=== PATIENT | male | born 1970 | race African-American/Black ===

== ENCOUNTER 2020-10-09 12:45 | Emergency (ER) | payer OTHER ==
[2020-10-09 13:02] VITALS: BP 147/99; PULSE 102; RESP 18; TEMP 98.4
[2020-10-09] MEDS ORDERED: AMOXIC-POT CLAV 875MG STARTER PACK 2 TAB BTL PO STA ×2 (13:53)
[2020-10-09] MEDS ORDERED: AMOXIC-POT CLAV 875-125MG 1 EACH TAB PO STA (13:53)
--- NOTE | 2020-10-09 13:57 | ED ---
Medical Clearance HPI - General Chief complaint: Medical Clearance Stated complaint: Long-Term clearance Time Seen by Provider: 10/09/20 13:04 Source: patient, RN notes reviewed Mode of arrival: ambulatory Limitations: no limitations - History of Present Illness Initial comments: 49-year-old male presents emergency Department with police for [facility] clearance. Patient had a dog bite to his right arm. Patient states that he had surgery at [facility]. Patient has follow-up appointment on 10/21/2020. They felt that there was some drainage and has not taken his antibiotics last couple days. Patient states is painful but not changing. Patient offers no complaints. Allergies/Adverse reactions: Allergies Allergy/AdvReac Type Severity Reaction Status Date / Time No Known Allergies Allergy Verified 10/09/20 12:57 Review of Systems ROS Statement: Those systems with pertinent positive or pertinent negative responses have been documented in the HPI. ROS Other: All systems not noted in ROS Statement are negative. Past Medical History Past Medical History: Seizure Disorder Additional Past Medical History / Comment(s): glaucoma, History of Any Multi-Drug Resistant Organisms: None Reported Additional Past Surgical History / Comment(s): R arm Past Psychological History: No Psychological Hx Reported Smoking Status: Current every day smoker Past Alcohol Use History: Daily, Heavy Past Drug Use History: None Reported General Exam Limitations: no limitations General appearance: alert, in no apparent distress Head exam: Present: atraumatic, normocephalic, normal inspection Respiratory exam: Present: normal lung sounds bilaterally. Absent: respiratory distress, wheezes, rales, rhonchi, stridor Cardiovascular Exam: Present: regular rate, normal rhythm, normal heart sounds. Absent: systolic murmur, diastolic murmur, rubs, gallop, clicks Extremities exam: Present: other (Right arm wrap was on on, there are multiple open wounds there is some cracking noted multiple sutures there is no significant evidence of cellulitis or infection) Course Vital Signs 10/09/20 12:57 Temperature 98.4 F Pulse Rate 102 H Respiratory 18 Rate Blood Pressure 147/99 O2 Sat by Pulse 100 Oximetry Medical Decision Making - Medical Decision Making Patient has extensive dog bite to right arm with surgical repair there is no major signs of infection. Patient will be discharged on antibiotics Disposition Clinical Impression: Medical clearance for incarceration, Dog bite of right arm Disposition: HOME SELF-CARE Condition: Stable Additional Instructions: Continue antibiotic as directed. Please return to the Emergency Department if symptoms worsen or any other concerns. Is patient prescribed a controlled substance at d/c from ED?: No Referrals: Nadira Reed MD [Primary Care Provider] - 1-2 days Time of Disposition: 13:56
== END 2020-10-09 13:55 | disposition home or self-care (01) ==
LOC: EC 12:45
DX: Z02.89 Encounter for other administrative examinations (principal); S41.151A Open bite of right upper arm, initial encounter; F17.200 Nicotine dependence, unspecified, uncomplicated; W54.0XXA Bitten by dog, initial encounter
CPT/HCPCS: 99283

== ENCOUNTER 2020-11-11 07:32 | Inpatient (IN) | payer OTHER ==
--- NOTE | 2020-11-11 07:58 | ED ---
General Adult HPI - General Chief complaint: Abdominal Pain Stated complaint: Abd pain Time Seen by Provider: 11/11/20 07:37 Source: patient, EMS Mode of arrival: EMS Limitations: no limitations - History of Present Illness Initial comments: Dictation was produced using [employer] dictation software. please excuse any grammatical, word or spelling errors. This patient was cared for during a federal and state declared state of emergency secondary to Covid 19 Chief Complaint: 50-year-old incarcerated male presents to emergency Department for surgical consultation History of Present Illness: 50-year-old male. History obtained from transfer documentation, patient and lung enforcement. Patient's currently incarcerated male past medical history of glaucoma. He was seen at [facility] for acute onset abdominal pain. He was evaluated where CT was performed by ER physician marv Bangura showing sigmoid diverticulitis. Patient states that he has severe pain. Patient was given Levaquin and IV analgesia. Patient states he's been having fevers. According to law enforcement Sveta did not have a surgeon commissioned sales associate. Patient states that his symptoms began acutely. He states that a normal bowel movement yesterday. The ROS documented in this emergency department record has been reviewed and confirmed by me. Those systems with pertinent positive or negative responses have been documented in the HPI. All other systems are other negative and/or noncontributory. PHYSICAL EXAM: General Impression: Alert and oriented x3, acute distress secondary to pain HEENT: Normocephalic atraumatic, extra-ocular movements intact, pupils equal and reactive to light bilaterally, mucous membranes moist. Cardiovascular: Heart regular rate and rhythm Chest: Able to complete full sentences, no retractions, no tachypnea Abdomen: Diffuse abdominal tenderness to palpation, voluntary guarding Musculoskeletal: Pulses present and equal in all extremities, no peripheral edema Motor: no focal deficits noted Neurological: CN II-XII grossly intact, no focal motor or sensory deficits noted Skin: Intact with no visualized rashes Psych: Normal affect and mood ED course: 50-year-old male presents to the emergency department for acute sigmoid diverticulitis. All signs upon arrival shows tachycardia 100.7, heart rate of 115, rest of vital signs within acceptable limits. Transfer documentation was reviewed. Patient had no leukocytosis. His labs were unremarkable. He does have significant symptoms with palpation however at rest patient does not appear to be in any acute distress. Case is discussed with general surgeon Dr. Aldrich is willing to accept patients care for admission. He requests medicine be consulted. Patient has uncomplicated sigmoid diverticulitis. He does appear to be in pain however is not nauseated or have any bouts of vomiting. I will initiate oral antibiotics in the meantime to assess oral tolerance. - Related Data Home Medications Medication Instructions Recorded Confirmed Acetaminophen Tab [Tylenol Tab] 1,000 mg PO TID 11/11/20 11/11/20 Amoxic-Pot Clav 875-125Mg 1 tab PO Q12HR 11/11/20 11/11/20 [Augmentin 875-125] Ascorbic Acid [Vitamin C] 500 mg PO DAILY PRN 11/11/20 11/11/20 Ferrous Sulfate [Feosol] 325 mg PO DAILY PRN 11/11/20 11/11/20 Ibuprofen [Motrin] 800 mg PO BID PRN 11/11/20 11/11/20 Allergies Allergy/AdvReac Type Severity Reaction Status Date / Time squash Allergy Unknown Verified 11/11/20 07:53 ZUCCHINI Allergy Unknown Uncoded 11/11/20 07:53 Review of Systems ROS Statement: Those systems with pertinent positive or pertinent negative responses have been documented in the HPI. ROS Other: All systems not noted in ROS Statement are negative. Past Medical History Past Medical History: Seizure Disorder Additional Past Medical History / Comment(s): glaucoma, History of Any Multi-Drug Resistant Organisms: None Reported Additional Past Surgical History / Comment(s): R arm Dog bite; muscle and ligament repair. Past Psychological History: No Psychological Hx Reported Smoking Status: Current every day smoker Past Alcohol Use History: Daily, Heavy Past Drug Use History: None Reported General Exam Limitations: no limitations Course Vital Signs 11/11/20 07:37 Temperature 100.7 F H Pulse Rate 115 H Respiratory 18 Rate Blood Pressure 127/87 O2 Sat by Pulse 100 Oximetry Disposition Clinical Impression: Diverticulitis Disposition: ADMITTED IP TO THIS HOSP Condition: Fair Referrals: Nadira Reed MD [Primary Care Provider] - 1-2 days Decision Time: 08:17
[2020-11-11] MEDS ORDERED: ONDANSETRON 4 MG/2 ML VIAL IVP PRN (08:11)
[2020-11-11] MEDS ORDERED: NALOXONE 0.4 MG/ML 1 ML VIAL IV PRN (08:11)
[2020-11-11] MEDS ORDERED: AMOXIC-POT CLAV 875-125MG 1 EACH TAB PO SCH (08:15)
[2020-11-11] MEDS: ACETAMINOPHEN TAB 325 MG TAB PO PRN ×2 (08:28→17:42)
[2020-11-11] MEDS: SODIUM CHLORIDE 0.9% 1,000 ML IV SCH ×3 (08:28→23:26)
[2020-11-11] MEDS: MORPHINE SULFATE 4 MG/ML SYRINGE IV PRN ×3 (08:29→21:30)
[2020-11-11] MEDS ORDERED: KETOROLAC 15 MG/ML 1 ML VIAL IVP STA (11:43)
[2020-11-11] MEDS: BACITRACIN OINT 1 EACH PACKET TOPICAL SCH ×2 (17:07→22:43)
--- NOTE | 2020-11-11 17:16 | P.GSHP ---
History of Present Illness H&P Date: 11/11/20 Chief Complaint: diverticulitis 50-year-old male transferred from outside hospital with diverticulitis. Patient has had diffuse abdominal pain more in the lower abdomen for the last 1-2 days. Normal bowel movement yesterday. No history of similar events. CAT scan showed sigmoid diverticulitis. Patient is febrile here in the hospital and also tachycardic. Patient also has history in September of a severe dog bite wound to the right forearm requiring skin grafting. He sees his surgeon once weekly for that. Patient is currently incarcerated in [facility]. Denies rectal bleeding or melena. - Review of Systems Comment: The patient denies any acute changes in vision or hearing, no dysphagia or odynophagia, no chest pain or shortness of breath, no dysuria or hematuria, no headache, no runny nose, no rectal bleeding or melena, no unexplained weight loss Past Medical History Past Medical History: Eye Disorder, GERD/Reflux, Osteoarthritis (OA), Seizure Disorder Additional Past Medical History / Comment(s): ETOH with past tremors/seizure- last time 06/2020, bilateral glaucoma, anemia, low back pain, bilateral knee pain and L hip pain History of Any Multi-Drug Resistant Organisms: None Reported Past Surgical History: Orthopedic Surgery Additional Past Surgical History / Comment(s): 10/07/20 R arm ligament and muscle repair d/t dog bite, L wisdom teeth extraction. Past Anesthesia/Blood Transfusion Reactions: No Reported Reaction Smoking Status: Current every day smoker - Past Family History Father Additional Family Medical History / Comment(s): ETOH abuse. Pt states he does not have much contact with father. Mother Family Medical History: Asthma, COPD, Hypertension, Rheumatoid Arthritis (RA), Sleep Apnea/CPAP/BIPAP Additional Family Medical History / Comment(s): Bronchitis. Medications and Allergies Home Medications Medication Instructions Recorded Confirmed Type Acetaminophen Tab [Tylenol Tab] 1,000 mg PO TID 11/11/20 11/11/20 History Amoxic-Pot Clav 875-125Mg 1 tab PO Q12HR 11/11/20 11/11/20 History [Augmentin 875-125] Ascorbic Acid [Vitamin C] 500 mg PO DAILY PRN 11/11/20 11/11/20 History Ferrous Sulfate [Feosol] 325 mg PO DAILY PRN 11/11/20 11/11/20 History Ibuprofen [Motrin] 800 mg PO BID PRN 11/11/20 11/11/20 History Allergies Allergy/AdvReac Type Severity Reaction Status Date / Time squash Allergy Unknown Verified 11/11/20 07:53 ZUCCHINI Allergy Unknown Uncoded 11/11/20 07:53 Surgical - Exam Vital Signs Temp Pulse Resp BP Pulse Ox 100.7 F H 115 H 18 127/87 100 11/11/20 07:37 11/11/20 07:37 11/11/20 07:37 11/11/20 07:37 11/11/20 07:37 Physical exam: General: Well-developed, well-nourished HEENT: Normocephalic, sclerae nonicteric Abdomen: Diffuse tenderness, no rebound or guarding, increased tenderness left lower quadrant, nondistended Extremities: Right forearm dressing removed, large wounds involving anterior and posterior forearm with evidence of skin grafting, sutures in place, small amount of serous drainage noted, no erythema, mild tenderness, some numbness Neuro: Alert and oriented Assessment and Plan (1) Dog bite of arm Current Visit: Yes Status: Acute Code(s): S41.159A - OPEN BITE OF UNSPECIFIED UPPER ARM, INITIAL ENCOUNTER; W54.0XXA - BITTEN BY DOG, INITIAL ENCOUNTER SNOMED Code(s): 943760367 (2) Diverticulitis Narrative/Plan: Continue broad-spectrum antibiotics. Patient was already on oral Augmentin for the last several weeks. We'll consult infectious disease to help with the right forearm wound and appropriate antibiotic choice. Keep nothing by mouth. Repeat abdominal x-rays tomorrow. We'll consult hospitalist as well for underlying asthma. Current Visit: Yes Status: Acute Code(s): K57.92 - DVTRCLI OF INTEST, PART UNSP, W/O PERF OR ABSCESS W/O BLEED SNOMED Code(s): 897046638
[2020-11-11] MEDS ORDERED: LEVOFLOXACIN 500MG-D5W PMX 500 MG in DEXTROSE/WATER 1 100ML.BAG IVPB SCH (17:30)
[2020-11-11] MEDS: metroNIDAZOLE-NS PMX 500 MG in SALINE 1 100ML.BAG IVPB SCH (17:31)
[2020-11-11] MEDS: KETOROLAC 15 MG/ML 1 ML VIAL IVP SCH ×2 (18:05→23:25)
[2020-11-11] MEDS: FAMOTIDINE 20 MG/2 ML VIAL IV SCH (20:18)
[2020-11-11] MEDS: HEPARIN SODIUM,PORCINE/PF 5,000 UNIT/0.5 ML SYRINGE SQ SCH (22:42)
[2020-11-12] MEDS: ACETAMINOPHEN TAB 325 MG TAB PO PRN (01:34)
[2020-11-12] MEDS: metroNIDAZOLE-NS PMX 500 MG in SALINE 1 100ML.BAG IVPB SCH ×2 (01:51→10:07)
[2020-11-12] MEDS: MORPHINE SULFATE 4 MG/ML SYRINGE IV PRN ×4 (01:54→21:43)
[2020-11-12] MEDS: KETOROLAC 15 MG/ML 1 ML VIAL IVP SCH ×3 (05:39→18:16)
[2020-11-12] MEDS: HEPARIN SODIUM,PORCINE/PF 5,000 UNIT/0.5 ML SYRINGE SQ SCH ×3 (08:46→21:43)
[2020-11-12] MEDS: FAMOTIDINE 20 MG/2 ML VIAL IV SCH ×2 (08:46→21:43)
[2020-11-12] MEDS: BACITRACIN OINT 1 EACH PACKET TOPICAL SCH ×3 (08:46→21:43)
[2020-11-12] MEDS: SODIUM CHLORIDE 0.9% 1,000 ML IV SCH ×2 (08:47→16:42)
--- NOTE | 2020-11-12 08:58 | XR ---
EXAMINATION TYPE: XR abdomen 2V DATE OF EXAM: 11/12/2020 COMPARISON: NONE HISTORY: Pain TECHNIQUE: One view abdominal series FINDINGS: The osseous structures are intact. The bowel gas pattern is nonspecific. Lung bases are clear. Arth ropathy of the hips. IMPRESSION: 1. Nonspecific abdomen.
[2020-11-12 09:22] LABS: Basophils % (A) 0 %; Eosinophils # (A) 0.3 k/uL (0-0.7); Eosinophils % (A) 4 %; HCT 37.5 % (39.0-53.0); HGB 11.6 gm/dL (13.0-17.5); Lymphocytes # (A) 1.3 k/uL (1.0-4.8); Lymphocytes % (A) 20 %; MCH 29.7 pg (25.0-35.0); MCHC 30.9 g/dL (31.0-37.0); MCV 95.9 fL (80.0-100.0); Mean Platelet Volume 6.9; Monocytes # (A) 0.4 k/uL (0-1.0); Monocytes % (A) 5 %; Neutrophils # (A) 4.5 k/uL (1.3-7.7); Neutrophils % (A) 69 %; Platelet Count 276 k/uL (150-450); RBC 3.91 m/uL (4.30-5.90); RDW 13.8 % (11.5-15.5); WBC 6.6 k/uL (3.8-10.6)
[2020-11-12 09:34] LABS: African American GFR (CKD) >90 (>60 ml/min/1.73 sqM); Anion Gap 6 mmol/L; Blood Urea Nitrogen 11 mg/dL (9-20); Carbon Dioxide 26 mmol/L (22-30); Chloride 105 mmol/L (98-107); Glucose 84 mg/dL (74-99); Non-African American GFR(CKD) >90 (>60 ml/min/1.73 sqM); Potassium 3.9 mmol/L (3.5-5.1); Sodium 137 mmol/L (137-145)
--- NOTE | 2020-11-12 13:43 | P.PN ---
Subjective Progress Note Date: 11/12/20 Principal diagnosis: Diverticulitis Patient feels better today. Yesterday his pain was 10 out of 10. Today it is down to 5 out of 10. He is hungry now. Passing gas. No fevers or tachycardia since yesterday evening. Pain still localized to the lower mid abdomen Objective - Vital Signs Vital signs: Vital Signs Temp 98.9 F 11/12/20 07:00 Pulse 85 11/12/20 07:00 Resp 16 11/12/20 07:00 BP 153/92 11/12/20 07:00 Pulse Ox 98 11/12/20 07:00 Intake & Output 11/11/20 11/12/20 11/12/20 18:59 06:59 18:59 Intake Total 100 1640 Output Total 1000 Balance 100 640 Weight 90.718 kg Intake: IV 100 Sodium Chloride 0.9% 1, 100 000 ml @ 120 mls/hr IV . Q8H20M [facility] Rx#:[id number] Intake, IV Titration 1640 Amount Levofloxacin 500Mg-D5w 100 Pmx 500 mg In Dextrose/ Water 1 100ml.bag @ 100 mls/hr IVPB Q24H [facility] Rx#: [id number] Sodium Chloride 0.9% 1, 1440 000 ml @ 120 mls/hr IV . Q8H20M [facility] Rx#:[id number] metroNIDAZOLE-NS PMX 500 100 mg In Saline 1 100ml.bag @ 100 mls/hr IVPB Q8H [facility] Rx#:[id number] Output: Urine 1000 - Exam Abdomen: Soft, nondistended, mild lower quadrant tenderness left greater than right - Labs CBC & Chem 7: 11/12/20 08:31 11/12/20 08:31 Labs: Abnormal Lab Results - Last 24 Hours (Table) 11/12/20 Range/Units 08:31 RBC 3.91 L (4.30-5.90) m/uL Hgb 11.6 L (13.0-17.5) gm/dL Hct 37.5 L (39.0-53.0) % MCHC 30.9 L (31.0-37.0) g/dL Assessment and Plan (1) Dog bite of arm Narrative/Plan: Patient doing better today. Continue IV antibiotics. Await infectious disease recommendations for home antibiotics. Begin clear liquid diet. Anticipate discharge 24-48 hours if patient still doing well. Current Visit: Yes Status: Acute Code(s): S41.159A - OPEN BITE OF UNSPECIFIED UPPER ARM, INITIAL ENCOUNTER; W54.0XXA - BITTEN BY DOG, INITIAL EN COUNTER SNOMED Code(s): 272972232 (2) Diverticulitis Current Visit: Yes Status: Acute Code(s): K57.92 - DVTRCLI OF INTEST, PART UNSP, W/O PERF OR ABSCESS W/O BLEED SNOMED Code(s): 691338660
--- NOTE | 2020-11-12 16:29 | P.CONS ---
History of Present Illness - Reason for Consult Consult date: 11/12/20 medical management - Chief Complaint Acute onset abdominal pain - History of Present Illness 50-year-old male. History obtained from transfer documentation, patient and lung enforcement. Patient's currently incarcerated male past medical history of glaucoma. He was seen at [facility] for acute onset abdominal pain. He was evaluated where CT was performed by ER physician marv Bangura showing sigmoid diverticulitis. Patient states that he has severe pain. Patient was given Levaquin and IV analgesia. Patient states he's been having fevers. According to law enforcement S[facility]eta did not have a surgeon iron pourer. Patient states that his symptoms began acutely. He states that a normal bowel movement yesterday. 50-year-old male presents to the emergency department for acute sigmoid diverticulitis. All signs upon arrival shows tachycardia 100.7, heart rate of 115, rest of vital signs within acceptable limits. Transfer documentation was reviewed. Patient had no leukocytosis. His labs were unremarkable. He does have significant symptoms with palpation however at rest patient does not appear to be in any acute distress. Case is discussed with general surgeon Dr. Aldrich is willing to accept patients care for admission. He requests medicine be consulted. Patient has uncomplicated sigmoid diverticulitis. Review of Systems REVIEW OF SYSTEMS: CONSTITUTIONAL: No fever, no malaise, no fatigue. HEENT: No recent visual problems or hearing problems. Denied any sore throat. CARDIOVASCULAR: No chest pain, orthopnea, PND, no palpitations, no syncope. PULMONARY: No shortness of breath, no cough, no hemoptysis. GASTROINTESTINAL: abdominal pain. NEUROLOGICAL: No headaches, no weakness, no numbness. HEMATOLOGICAL: Denies any bleeding or petechiae. GENITOURINARY: Denies any burning micturition, frequency, or urgency. MUSCULOSKELETAL/RHEUMATOLOGICAL: Denies any joint pain, swelling, or any muscle pain. ENDOCRINE: Denies any polyuria or polydipsia. The rest of the 14-point review of systems is negative. Past Medical History Past Medical History: Eye Disorder, GERD/Reflux, Osteoarthritis (OA), Seizure Disorder Additional Past Medical History / Comment(s): ETOH with past tremors/seizure- last time 06/2020, bilateral glaucoma, anemia, low back pain, bilateral knee pain and L hip pain History of Any Multi-Drug Resistant Organisms: None Reported Past Surgical History: Orthopedic Surgery Additional Past Surgical History / Comment(s): 10/07/20 R arm ligament and muscle repair d/t dog bite, L wisdom teeth extraction. Past Anesthesia/Blood Transfusion Reactions: No Reported Reaction Smoking Status: Current every day smoker - Past Family History Father Additional Family Medical History / Comment(s): ETOH abuse. Pt states he does not have much contact with father. Mother Family Medical History: Asthma, COPD, Hypertension, Rheumatoid Arthritis (RA), Sleep Apnea/CPAP/BIPAP Additional Family Medical History / Comment(s): Bronchitis. Medications and Allergies Home Medications Medication Instructions Recorded Confirmed Type Acetaminophen Tab [Tylenol Tab] 1,000 mg PO TID 11/11/20 11/11/20 History Amoxic-Pot Clav 875-125Mg 1 tab PO Q12HR 11/11/20 11/11/20 History [Augmentin 875-125] Ascorbic Acid [Vitamin C] 500 mg PO DAILY PRN 11/11/20 11/11/20 History Ferrous Sulfate [Feosol] 325 mg PO DAILY PRN 11/11/20 11/11/20 History Ibuprofen [Motrin] 800 mg PO BID PRN 11/11/20 11/11/20 History Allergies Allergy/AdvReac Type Severity Reaction Status Date / Time squash Allergy Unknown Verified 11/11/20 07:53 ZUCCHINI Allergy Unknown Uncoded 11/11/20 07:53 Physical Exam Vitals: Vital Signs Temp Pulse Resp BP Pulse Ox 11/12/20 07:00 98.9 F 85 16 153/92 98 11/12/20 01:39 98.8 F 83 18 157/92 100 11/11/20 17:36 100.6 F H 99 18 157/100 100 11/11/20 15:18 101.1 F H 11/11/20 13:39 18 11/11/20 11:52 100.4 F H Intake and Output 11/11/20 11/12/20 11/12/20 22:59 06:59 14:59 Intake Total 100 1640 Output Total 250 750 Balance -150 890 Intake: IV 100 Sodium Chloride 0.9% 1, 100 000 ml @ 120 mls/hr IV . Q8H20M [facility] Rx#:[id number] Intake, IV Titration 1640 Amount Levofloxacin 500Mg-D5w 100 Pmx 500 mg In Dextrose/ Water 1 100ml.bag @ 100 mls/hr IVPB Q24H [facility] Rx#: [id number] Sodium Chloride 0.9% 1, 1440 000 ml @ 120 mls/hr IV . Q8H20M [facility] Rx#:[id number] metroNIDAZOLE-NS PMX 500 100 mg In Saline 1 100ml.bag @ 100 mls/hr IVPB Q8H [facility] Rx#:[id number] Output: Urine 250 750 Other: Weight 90.718 kg General Impression: Alert and oriented x3, acute distress secondary to pain HEENT: Normocephalic atraumatic, extra-ocular movements intact, pupils equal and reactive to light bilaterally, mucous membranes moist. Cardiovascular: Heart regular rate and rhythm Chest: Able to complete full sentences, no retractions, no tachypnea Abdomen: Diffuse abdominal tenderness to palpation, voluntary guarding Musculoskeletal: Pulses present and equal in all extremities, no peripheral edema Motor: no focal deficits noted Neurological: CN II-XII grossly intact, no focal motor or sensory deficits noted Skin: Intact with no visualized rashes Psych: Normal affect and mood Results CBC & Chem 7: 11/12/20 08:31 11/12/20 08:31 Labs: Abnormal Lab Results - Last 24 Hours (Table) 11/12/20 Range/Units 08:31 RBC 3.91 L (4.30-5.90) m/uL Hgb 11.6 L (13.0-17.5) gm/dL Hct 37.5 L (39.0-53.0) % MCHC 30.9 L (31.0-37.0) g/dL Assessment and Plan Assessment: 1. Acute diverticulitis - Patient has been placed on antibiotic therapy per surgery recommendations; patient does report improvement in pain and diet has been advanced to clear liquids; ID consults are still pending; await recommendations made by ID; plan is to continue to advance diet as tolerated with possibility of discharge in next 24-48 hours 2. Dog bite wound left arm; antibiotic therapy to further recommendations by ID; continue with local wound care; patient has been cultured and antibiotics would be adjusted according to culture results 3. Chronic intermittent asthma; we will use albuterol inhaler 2 puffs 4 times a day as needed DVT prophylaxis; SCDs CODE STATUS; full code
[2020-11-12] MEDS: PIPERACILLIN-TAZOBACTAM 3.375 GM in SODIUM CHLORIDE 0.9% 100 ML IVPB SCH (16:42)
--- NOTE | 2020-11-12 18:53 | CONS ---
CONSULTATION DATE OF SERVICE: 11/12/2020 REASON FOR CONSULTATION: 1. Acute diverticulitis antibiotic management. 2. Right arm wound post dog bite. HISTORY OF PRESENT ILLNESS: The patient is a 50-year-old -[place]iss male. Apparently the patient has a history of a dog bite wound to the right upper extremity, extensive, for which the patient did have surgery with repair of the tendons, and subsequently he had skin grafting done by . The patient has been on oral antibiotics in the form of Augmentin. The patient's current local wound care to the arm has been bacitracin cream 3 times a day. The patient was sent to the outside facility and started having abdominal pain about 2 days ago. The pain has been mostly in the left lower abdominal area described to more sharp, almost 10/10 in severity when he presented to the hospital. Significant nausea but no vomiting. No diarrhea or constipation. The patient apparently did have a CT of the abdomen and pelvis with evidence of diverticulitis, for which the patient was subsequently transferred to this facility for further management. The patient on presentation to the hospital did have a fever of 100.7 and subsequently spiked a fever of 101.1. The patient had a normal white count. [place] PCR has been negative. The patient was started on Levaquin and Flagyl. Infectious Disease was consulted for further management of antibiotic therapy as well as right upper extremity wound. REVIEW OF SYSTEMS: Positive points have been mentioned in the HPI. Rest of the systems are negative. PAST MEDICAL HISTORY: Extensive dog bite wound to the right arm, seizure disorder, glaucoma. PAST SURGICAL HISTORY: Right arm dog bite wound muscle and ligament repair. SOCIAL HISTORY: Currently everyday smoker and history of IV drug use. Currently incarcerated in [facility]. ALLERGY: SQUASH. ALLERGIES: NO KNOWN DRUG ALLERGIES. MEDICATIONS: The patient is currently on Tylenol, bacitracin ointment, Pepcid, heparin, Toradol, Narcan, Zofran, Levaquin and Flagyl. PHYSICAL EXAMINATION: Blood pressure 126/53, pulse of 99, temperature 98.3. He is 99% on room air. General description is a middle-aged male lying in bed in no distress. No tachypnea or accessory muscle of respiration use. HEENT: Examination shows slight pallor. No scleral icterus. Oral mucous membrane is dry. NECK: Trachea is central. No thyromegaly. LUNGS: Unlabored breathing. Clear to auscultation anteriorly No wheeze or crackle. HEART: S1, S2. Regular rate and rhythm. ABDOMEN: Soft. The patient is tender in the left lower quadrant area. No guarding or rigidity. No organomegaly. EXTREMITIES: No edema of feet. Right arm did have a wound on the dorsal aspect with slight darkening area; however, the patient mentioned that this has been the same. There was no surrounding swelling or redness or any foul-smelling drainage. Neurologically the patient is awake, alert, oriented x3. Mood and affect normal. LABS: Hemoglobin is 11.6, white count 6.6, BUN of 11, creatinine 0.76. DIAGNOSTIC IMPRESSION AND PLAN: 1. Patient admitted to hospital with acute diverticulitis in this patient despite being on Augmentin. Concern for possible Augmentin-resistant bacteria. 2. Patient with right upper extremity dog bite wound, status post skin grafting. No evidence of any cellulitis. PLAN: 1. Discontinue Levaquin and Flagyl. 2. Start the patient on Zosyn 3.375 grams q.8 hours. 3. Local care to continue with bacitracin cream and nonadherent dressing. The patient's right arm cultures were shared with his surgeon, who recommended continuing with current local wound care. 4. Will follow his clinical condition and further adjust his medication if needed. Thank you for this consultation. Will follow this patient along with you. BARB / ALVERTO: [id number] / MTDD
[2020-11-13] MEDS: KETOROLAC 15 MG/ML 1 ML VIAL IVP SCH ×5 (00:54→23:51)
[2020-11-13] MEDS: PIPERACILLIN-TAZOBACTAM 3.375 GM in SODIUM CHLORIDE 0.9% 100 ML IVPB SCH ×4 (00:55→23:51)
[2020-11-13] MEDS: SODIUM CHLORIDE 0.9% 1,000 ML IV SCH ×4 (03:53→23:52)
[2020-11-13] MEDS: ACETAMINOPHEN TAB 325 MG TAB PO PRN (05:32)
[2020-11-13] MEDS: HEPARIN SODIUM,PORCINE/PF 5,000 UNIT/0.5 ML SYRINGE SQ SCH ×3 (08:42→19:52)
[2020-11-13] MEDS: FAMOTIDINE 20 MG/2 ML VIAL IV SCH ×2 (08:43→19:52)
[2020-11-13] MEDS: BACITRACIN OINT 1 EACH PACKET TOPICAL SCH ×2 (08:45→16:00)
[2020-11-13] MEDS: MORPHINE SULFATE 4 MG/ML SYRINGE IV PRN ×2 (09:51→19:52)
[2020-11-13 10:13] LABS: African American GFR (CKD) 129.3 (60.0-200.0); Anion Gap 9.5 mmol/L (4.00-12.00); BUN/Creat Ratio 8.57 Ratio (12.00-20.00); Calcium 8.9 mg/dL (8.7-10.3); Carbon Dioxide 25.5 mmol/L (21.6-31.8); Non-African American GFR(CKD) 111.6 (60.0-200.0)
[2020-11-13 11:46] LABS: Basophils # (A) 0.02 X 10*3/uL (0.00-0.10); Basophils % (A) 0.4 %; Eosinophils # (A) 0.33 X 10*3/uL (0.04-0.35); Eosinophils % (A) 5.9 %; HCT 33.6 % (39.6-50.0); HGB 10.9 g/dL (13.0-17.0); Lymphocytes # (A) 1.43 X 10*3/uL (0.90-5.00); Lymphocytes % (A) 25.6 %; MCH 30.3 pg (27.0-32.0); MCHC 32.4 g/dL (32.0-37.0); MCV 93.3 fL (80.0-97.0); Mean Platelet Volume 9.7 fL (9.5-12.2); Monocytes # (A) 0.58 X 10*3/uL (0.20-1.00); Monocytes % (A) 10.4 %; Neutrophils # (A) 3.22 X 10*3/uL (1.80-7.70); Neutrophils % (A) 57.5 %; Platelet Count 290 X 10*3/uL (140-440); RDW 12.7 % (11.5-14.5); WBC 5.59 X 10*3/uL (4.50-10.00)
--- NOTE | 2020-11-13 16:18 | PN ---
PROGRESS NOTE DATE OF SERVICE: 11/13/2020 REASON FOR FOLLOW UP: 1. Diverticulitis. 2. Right arm wound from a dog bite, status post surgery and skin graft. INTERVAL HISTORY: Patient is currently afebrile. Patient is breathing comfortably. The patient denies having any chest pain, shortness of breath or cough. Abdominal pain is currently improved. No diarrhea or any pain to the right arm. PHYSICAL EXAMINATION: Blood pressure 145/95, pulse of 83, temperature 98.1. He is 100% on room air. GENERAL DESCRIPTION: A middle-aged male lying in bed in no distress. RESPIRATORY SYSTEM: Unlabored breathing, clear to auscultation anteriorly. HEART: S1, S2. Regular rate and rhythm. ABDOMEN: Soft, no tenderness. EXTREMITIES: Right arm is currently dressed. No drainage on the dressing. LABS: Hemoglobin is 10.1, white count of 5.59, BUN of 6, creatinine 0.7. DIAGNOSTIC IMPRESSION AND PLAN: 1. Patient with acute sigmoid diverticulitis admitted to the hospital with abdominal pain. The patient has clinically responded to current antibiotic therapy with resolution of abdominal pain. Diet will be slowly advanced and if the patient tolerates, antibiotic will be switched to be oral Cipro and Flagyl to finish course of therapy. 2. Patient with right arm wound after dog bite and surgery followed by skin grafting. Local care to continue with bacitracin and moist dressing. Continue supportive care. MMODL / KARISHMAN: [id number] / MTDD
[2020-11-13] MEDS: BACITRACIN ZINC 500 UNIT/GM OINT 28.4 GM TUBE TOPICAL SCH ×2 (17:49→19:51)
--- NOTE | 2020-11-13 18:28 | P.PN ---
Subjective Progress Note Date: 11/13/20 CHIEF COMPLAINT: Acute diverticulitis HISTORY OF PRESENT ILLNESS: The patient is a 50 year old male presented with diverticulitis. He reports some improvement of his pain. He is tolerating liquids. He complains of moderate urination. His pain is 6/10. REVIEW OF ORGAN SYSTEMS: No chest pain, no shortness of breath. No nausea or vomiting. PHYSICAL EXAM: VITALS: Reviewed CONSTITUTIONAL: Well developed and in no acute distress. EYES: Conjuctivae without sclera icterus. Extraocular movements grossly intact. HEAD, EARS, NOSE, THROAT: Moist buccal mucosa. Head is atraumatic, normocephalic. Hears conversational speech. RESPIRATORY: Non-labored respirations and equal bilateral excursions. No gross wheezes. CARDIOVASCULAR: Regular rate and rhythm. Palpable 2+ radial pulses. ABDOMEN: No peritonitis. NEUROLOGIC: Cranial nerves II through XII grossly intact. No focal or lateralizing signs. PSYCH: Alert to person, place and time. CLINCAL LABS: Reviewed. WBC normal. ASSESSMENT: 1. Diverticulitis PLAN: 1. Continue IV antibiotics. 2. Heplock IVF Objective - Vital Signs Vital signs: Vital Signs Temp 98.1 F 11/13/20 13:05 Pulse 86 11/13/20 13:05 Resp 16 11/13/20 13:05 BP 145/95 11/13/20 13:05 Pulse Ox 100 11/13/20 13:05 Intake & Output 11/12/20 11/13/20 11/13/20 18:59 06:59 18:59 Intake Total 1440 Output Total 900 850 Balance 540 -850 Intake: IV 1440 Sodium Chloride 0.9% 1, 1440 000 ml @ 120 mls/hr IV . Q8H20M [facility] Rx#:[id number] Output: Urine 900 850 Other: # Voids 5 - Labs CBC & Chem 7: 11/13/20 03:27 11/13/20 03:27 Labs: Abnormal Lab Results - Last 24 Hours (Table) 11/13/20 11/13/20 Range/Units 03:27 03:27 RBC 3.60 L (4.40-5.60) X 10*6/uL Hgb 10.9 L (13.0-17.0) g/dL Hct 33.6 L (39.6-50.0) % BUN 6.0 L (9.0-27.0) mg/dL BUN/Creatinine Ratio 8.57 L (12.00-20.00) Ratio Assessment and Plan (1) Diverticulitis Status: Acute Code(s): K57.92 - DVTRCLI OF INTEST, PART UNSP, W/O PERF OR ABSCESS W/O BLEED SNOMED Code(s): 657421918
[2020-11-14] MEDS: KETOROLAC 15 MG/ML 1 ML VIAL IVP SCH ×4 (06:07→23:49)
[2020-11-14] MEDS: PIPERACILLIN-TAZOBACTAM 3.375 GM in SODIUM CHLORIDE 0.9% 100 ML IVPB SCH ×3 (07:52→23:49)
[2020-11-14] MEDS: HEPARIN SODIUM,PORCINE/PF 5,000 UNIT/0.5 ML SYRINGE SQ SCH ×3 (07:54→21:47)
[2020-11-14] MEDS: FAMOTIDINE 20 MG/2 ML VIAL IV SCH ×2 (09:23→21:47)
[2020-11-14] MEDS: BACITRACIN ZINC 500 UNIT/GM OINT 28.4 GM TUBE TOPICAL SCH ×3 (09:24→21:47)
[2020-11-14] MEDS: MORPHINE SULFATE 4 MG/ML SYRINGE IV PRN ×2 (10:02→21:47)
--- NOTE | 2020-11-14 13:06 | P.PN ---
Subjective Progress Note Date: 11/13/20 Principal diagnosis: Acute diverticulitis Right are dog bite wound 50-year-old male. History obtained from transfer documentation, patient and lung enforcement. Patient's currently incarcerated male past medical history of glaucoma. He was seen at [facility] for acute onset abdominal pain. He was evaluated where CT was performed by ER physician marv Bangura showing sigmoid diverticulitis. Patient states that he has severe pain. Patient was given Levaquin and IV analgesia. Patient states he's been having fevers. According to law enforcement [facility] did not have a surgeon carton inspector. Patient states that his symptoms began acutely. He states that a normal bowel movement yesterday. 50-year-old male presents to the emergency department for acute sigmoid diverti culitis. All signs upon arrival shows tachycardia 100.7, heart rate of 115, rest of vital signs within acceptable limits. Transfer documentation was reviewed. Patient had no leukocytosis. His labs were unremarkable. He does have significant symptoms with palpation however at rest patient does not appear to be in any acute distress. Case is discussed with general surgeon Dr. Aldrich is willing to accept patients care for admission. He requests medicine be consulted. Patient has uncomplicated sigmoid diverticulitis. 11/13/2020 Patient is seen and evaluated with multiple friends also present; patient inquiring about advancing diet; continues to complain of abdominal pain requiring [id number] pain medications Patient has been evaluated by ID and antibiotics have been switched to oral Cipro and Flagyl and local care to continue bacitracin ointment with dressing to the wound Objective - Vital Signs Vital signs: Vital Signs Temp 98.8 F 11/13/20 07:05 Pulse 83 11/13/20 07:05 Resp 16 11/13/20 07:05 BP 141/87 11/13/20 07:05 Pulse Ox 98 11/13/20 07:05 Intake & Output 11/12/20 11/13/20 11/13/20 18:59 06:59 18:59 Intake Total 1440 Output Total 900 Balance 540 Intake: IV 1440 Sodium Chloride 0.9% 1, 1440 000 ml @ 120 mls/hr IV . Q8H20M [facility] Rx#:[id number] Output: Urine 900 Other: # Voids 5 - Exam General Impression: Alert and oriented x3, acute distress secondary to pain HEENT: Normocephalic atraumatic, extra-ocular movements intact, pupils equal and reactive to light bilaterally, mucous membranes moist. Cardiovascular: Heart regular rate and rhythm Chest: Able to complete full sentences, no retractions, no tachypnea Abdomen: Diffuse abdominal tenderness to palpation, voluntary guarding Musculoskeletal: Pulses present and equal in all extremities, no peripheral edema Motor: no focal deficits noted Neurological: CN II-XII grossly intact, no focal motor or sensory deficits noted Skin: Intact with no visualized rashes Psych: Normal affect and mood - Labs CBC & Chem 7: 11/13/20 03:27 11/13/20 03:27 Labs: Abnormal Lab Results - Last 24 Hours (Table) 11/13/20 11/13/20 Range/Units 03:27 03:27 RBC 3.60 L (4.40-5.60) X 10*6/uL Hgb 10.9 L (13.0-17.0) g/dL Hct 33.6 L (39.6-50.0) % BUN 6.0 L (9.0-27.0) mg/dL BUN/Creatinine Ratio 8.57 L (12.00-20.00) Ratio Assessment and Plan Assessment: 1. Acute diverticulitis - Patient has been placed on antibiotic therapy per surgery recommendations; patient does report improvement in pain and diet has been advanced to clear liquids; ID consults are still pending; await recommendations made by ID; plan is to continue to advance diet as tolerated with possibility of discharge in next 24-48 hours 2. Dog bite wound left arm; antibiotic therapy to further recommendations by ID; continue with local wound care; patient has been cultured and antibiotics would be adjusted according to culture results 3. Chronic intermittent asthma; we will use albuterol inhaler 2 puffs 4 times a day as needed DVT prophylaxis; SCDs CODE STATUS; full code
[2020-11-14] MEDS: SODIUM CHLORIDE 0.9% 1,000 ML IV SCH ×2 (13:19→21:48)
--- NOTE | 2020-11-14 16:54 | P.PN ---
Subjective Progress Note Date: 11/14/20 CHIEF COMPLAINT: Acute diverticulitis HISTORY OF PRESENT ILLNESS: The patient is a 50 year old male presented with diverticulitis. He reports some improvement of his pain. He is tolerating liquids. He reports moderate improvement of his abdominal pain. He is requesting normal food. REVIEW OF ORGAN SYSTEMS: No chest pain, no shortness of breath. No nausea or vomiting. PHYSICAL EXAM: VITALS: Reviewed CONSTITUTIONAL: Well developed and in no acute distress. EYES: Conjuctivae without sclera icterus. Extraocular movements grossly intact. HEAD, EARS, NOSE, THROAT: Moist buccal mucosa. Head is atraumatic, normocephalic. Hears conversational speech. RESPIRATORY: Non-labored respirations and equal bilateral excursions. No gross wheezes. CARDIOVASCULAR: Regular rate and rhythm. Palpable 2+ radial pulses. ABDOMEN: No peritonitis. Decrease lower abdominal tenderness. NEUROLOGIC: Cranial nerves II through XII grossly intact. No focal or lateralizing signs. PSYCH: Alert to person, place and time. CLINCAL LABS: Reviewed. WBC normal. ASSESSMENT: 1. Diverticulitis PLAN: 1. Will advance diet to low fiber. 2. Will observe following tolerating a low fiber diet Objective - Vital Signs Vital signs: Vital Signs Temp 98.0 F 11/14/20 13:00 Pulse 76 11/14/20 13:00 Resp 14 11/14/20 13:00 BP 159/102 11/14/20 13:00 Pulse Ox 99 11/14/20 13:00 Intake & Output 11/13/20 11/14/20 11/14/20 18:59 06:59 18:59 Intake Total 450 Output Total 850 2450 Balance - Intake: Oral 450 Output: Urine 850 2450 Other: # Voids 2 - Labs CBC & Chem 7: 11/13/20 03:27 11/13/20 03:27 Assessment and Plan (1) Diverticulitis Status: Acute Code(s): K57.92 - DVTRCLI OF INTEST, PART UNSP, W/O PERF OR ABSCESS W/O BLEED SNOMED Code(s): 914137000
[2020-11-15] MEDS: SODIUM CHLORIDE 0.9% 1,000 ML IV SCH ×2 (05:10→11:50)
--- NOTE | 2020-11-15 05:31 | PN ---
PROGRESS NOTE DATE OF SERVICE: 11/14/2020 REASON FOR FOLLOWUP: 1. Acute diverticulitis. 2. Right arm wound post dog bite and skin grafting. INTERVAL HISTORY: The patient is currently afebrile. The patient is breathing comfortably. The patient did mention overall improvement in his left lower abdominal pain. No nausea, no vomiting. No chest pain, shortness of breath or cough and denies pain to the right upper extremity. PHYSICAL EXAMINATION: Blood pressure is 160/100 with a pulse of 73, temperature 98.9. He is 100% on room air. General description is a middle-aged male lying in bed in no distress. Respiratory system: Unlabored breathing, clear to auscultation anteriorly. Heart S1, S2. Regular rate and rhythm. Abdomen soft. No tenderness. LABS: No new labs have been obtained today. DIAGNOSTIC IMPRESSION AND PLAN: 1. Patient with acute diverticulitis, clinically responding to Zosyn that should be slowly advanced and if the patient tolerates, finish therapy with oral Ceftin and Flagyl for 7-10 days. 2. Right arm dog bite injury status post surgery and skin grafting. Local care to continue with bacitracin cream, keep the area dry. MMODL / IJN: [id number] /
[2020-11-15] MEDS: KETOROLAC 15 MG/ML 1 ML VIAL IVP SCH ×2 (05:35→11:50)
[2020-11-15] MEDS: FAMOTIDINE 20 MG/2 ML VIAL IV SCH (08:57)
[2020-11-15] MEDS: HEPARIN SODIUM,PORCINE/PF 5,000 UNIT/0.5 ML SYRINGE SQ SCH (08:57)
[2020-11-15] MEDS: PIPERACILLIN-TAZOBACTAM 3.375 GM in SODIUM CHLORIDE 0.9% 100 ML IVPB SCH (08:57)
[2020-11-15] MEDS: BACITRACIN ZINC 500 UNIT/GM OINT 28.4 GM TUBE TOPICAL SCH (08:58)
--- NOTE | 2020-11-15 13:48 | P.DS ---
Providers Date of admission: 11/15/20 07:50 Expected date of discharge: 11/15/20 Attending physician: Michael Aldrich Consults: 11/11/20 17:17 Consult Physician Routine Consulting Provider: Mac Stock Consult Reason/Comments: dog bite wound with diverticulitis on antibiotics Do you want consulting provider notified?: Yes 11/11/20 17:24 Consult Physician Routine Consulting Provider: Astrid Clarke Consult Reason/Comments: medical management, asthma Do you want consulting provider notified?: Yes Primary care physician: Nadira Reed MD Hospital Course: Discharge diagnosis 1. Acute diverticulitis 2. Dog bite to right arm in September Hospital course This is a 50-year-old male who was transferred from an outside hospital with acute diverticulitis. Patient has had diffuse abdominal pain more in the lower abdomen for the last 1-2 days. Normal bowel movement yesterday. No history of similar events. CAT scan showed sigmoid diverticulitis. Patient is febrile here in the hospital and also tachycardic. Patient also has history in September of a severe dog bite wound to the right forearm requiring skin grafting. He sees his surgeon once weekly for that. Patient is currently incarcerated in [facility]. Patient was placed on IV antibiotics. He was also seen by infectious disease. Patient's abdominal pain has significantly decreased. He is tolerating diet. He is having regular bowel movements. He is afebrile. Patient will continue on oral antibiotics after discharge per ID recommendations. Patient is stable for discharge. Please refer to chart for any further details. Physician Iron Piler note has been reviewed by physician. Signing provider agrees with the documented findings, assessment, and plan of care. Patient Condition at Discharge: Stable Plan - Discharge Summary Discharge Rx Participant: No New Discharge Prescriptions: New Cefuroxime Axetil [Ceftin] 500 mg PO BID 7 Days #14 tab metroNIDAZOLE [Flagyl] 500 mg PO TID #21 tab Continue Acetaminophen Tab [Tylenol] 1,000 mg PO TID Ascorbic Acid [Vitamin C] 500 mg PO DAILY PRN PRN Reason: SICKNESS Ferrous Sulfate [Iron (65 MG Elemental)] 325 mg PO DAILY PRN PRN Reason: LOW IRON Discontinued Amoxic-Pot Clav 875-125Mg [Augmentin 875-125] 1 tab PO Q12HR Discharge Medication List Acetaminophen Tab [Tylenol] 1,000 mg PO TID 11/11/20 [History] Ascorbic Acid [Vitamin C] 500 mg PO DAILY PRN 11/11/20 [History] Ferrous Sulfate [Iron (65 MG Elemental)] 325 mg PO DAILY PRN 11/11/20 [History] Cefuroxime Axetil [Ceftin] 500 mg PO BID 7 Days #14 tab 11/15/20 [Rx] metroNIDAZOLE [Flagyl] 500 mg PO TID #21 tab 11/15/20 [Rx] Follow up Appointment(s)/Referral(s): Nadira Reed MD [Primary Care Provider] - 1 Week Michael Aldrich MD [Medical Doctor] - As Needed Activity/Diet/Wound Care/Special Instructions: Diet: low fiber Discharge Disposition: HOME SELF-CARE
--- NOTE | 2020-11-15 15:01 | P.PN ---
Subjective Progress Note Date: 11/15/20 Acute diverticulitis Right are dog bite wound 50-year-old male. History obtained from transfer documentation, patient and lung enforcement. Patient's currently incarcerated male past medical history of glaucoma. He was seen at [facility] for acute onset abdominal pain. He was evaluated where CT was performed by ER physician marv Bangura showing sigmoid diverticulitis. Patient states that he has severe pain. Patient was given Levaquin and IV analgesia. Patient states he's been having fevers. According to law enforcement [facility] did not have a surgeon ip litigation paralegal. Patient states that his symptoms began acutely. He states that a normal bowel movement yesterday. 50-year-old male presents to the emergency department for acute sigmoid diverticulitis. All signs upon arrival shows tachycardia 100.7, heart rate of 115, rest of vital signs within acceptable limits. Transfer documentation was reviewed. Patient had no leukocytosis. His labs were unremarkable. He does have significant symptoms with palpation however at rest patient does not appear to be in any acute distress. Case is discussed with general surgeon Dr. Aldrich is willing to accept patients care for admission. He requests medicine be consulted. Patient has uncomplicated sigmoid diverticulitis. 11/13/2020 Patient is seen and evaluated with multiple friends also present; patient inquiring about advancing diet; continues to complain of abdominal pain requiring [id number] pain medications Patient has been evaluated by ID and antibiotics have been switched to oral Cipro and Flagyl and local care to continue bacitracin ointment with dressing to the wound 11/15/2020 Patient is seen in follow-up with no acute overnight issues. Patient's diet was tolerated after advancing and infectious disease following and antibiotics were changed to oral. Following along closely with surgery and will continue during hospitalization. Patient states his abdominal pain is better and denies any nausea or vomiting. Review of systems: Constitutional: No reports of fatigue, fever, or chills Cardiovascular: No reports of chest pain or palpitations Respiratory: No reports of shortness of breath or cough GI: No reports of nausea, vomiting, or diarrhea, tolerating diet and denies abdominal pain : No reports of dysuria or retention Neurovascular: No reports of weakness or numbness All medications have been reviewed Objective - Vital Signs Vital signs: Vital Signs Temp 98.3 F 11/15/20 03:14 Pulse 76 11/15/20 03:14 Resp 17 11/15/20 03:14 BP 159/93 11/15/20 03:14 Pulse Ox 100 11/15/20 03:14 Intake & Output 11/14/20 11/15/20 11/15/20 18:59 06:59 18:59 Output Total 850 Balance -850 Output: Urine 850 Other: Voiding Method Urinal # Voids 3 3 # Bowel Movements 0 - Exam Constitutional: Alert and oriented x3, no acute distress, well-developed, well- nourished. HEENT: Normocephalic atraumatic, extra-ocular movements intact, pupils equal and reactive to light bilaterally, mucous membranes moist. Cardiovascular: Heart regular rate and rhythm Chest: S1, S2 are present, no retractions, no tachypnea Abdomen: Nondistended, normal bowel sounds noted, minimal lower abdominal tenderness on deep palpation Musculoskeletal: Pulses present and equal in all extremities, no peripheral edema Motor: no focal deficits noted Neurological: CN II-XII grossly intact, no focal motor or sensory deficits noted Skin: Intact with no visualized rashes Psych: Normal affect and mood - Labs CBC & Chem 7: 11/13/20 03:27 11/13/20 03:27 Assessment and Plan Assessment: -Acute diverticulitis: Patient was placed on IV antibiotics per surgery and infectious disease following and will likely transition to oral antibiotics. Patient tolerating diet with advancement -Dog bite wound left arm: Continue with antibiotic therapy ID following; continue with local wound care -Chronic intermittent asthma: we will use albuterol inhaler 2 puffs 4 times a day as needed -DVT prophylaxis: SCDs -Full code Plan: Continue with IV antibiotic therapy and will likely transition to oral antibiotics per infectious disease. Patient to continue with local wound care to the dog bite of the left arm. Diet has been advanced and tolerating and patient will likely be discharged today. Will continue to follow along with surgery during hospitalization. Thank you for this consultation.
[2020-11-15 15:30] VITALS: BP 170/109; PULSE 77; RESP 14; TEMP 98.3
--- NOTE | 2020-11-16 05:43 | P.PN ---
Progress Note - Text Progress Note Date: 11/15/20 REASON FOR FOLLOWUP: 1. Acute diverticulitis. 2. Right arm wound post dog bite and skin grafting. INTERVAL HISTORY: The patient is afebrile. The patient is breathing comfortably. The patient left lower abdominal pain has decreased in intensity. tolerating diet No nausea, no vomiting. No chest pain, shortness of breath or cough and denies pain to the right upper extremity. PHYSICAL EXAMINATION: Blood pressure is 150/90 with a pulse of 70, temperature 98.9. He is 100% on room air. General description is a middle-aged male lying in bed in no distress. Respiratory system: Unlabored breathing, clear to auscultation anteriorly. Heart S1, S2. Regular rate and rhythm. Abdomen soft. No tenderness. LABS: No new labs have been obtained today. DIAGNOSTIC IMPRESSION AND PLAN: 1. Patient with acute diverticulitis, clinically responding to Zosyn, diet should be slowly advanced and if the patient continue to tolerate to finish therapy with oral Ceftin and Flagyl for 7-10 days. 2. Right arm dog bite injury status post surgery and skin grafting. Local care to continue with bacitracin cream, keep the area dry and follow up with surgeon post discharge from hospital
== END 2020-11-15 16:54 | DRG 392 ==
LOC: EC 07:32 → 6NMEDSUR 09:50 → 1SOBS 17:09 → 6NMEDSUR 11-12 17:18 → OBSVTOIN 11-15 07:50
PROVIDERS: ADMIT Surgery; ATTEND Surgery
DX: K57.32 Diverticulitis of large intestine without perforation or abscess without bleeding (principal); H40.9 Unspecified glaucoma; J45.20 Mild intermittent asthma, uncomplicated; Z79.899 Other long term (current) drug therapy; G40.909 Epilepsy, unspecified, not intractable, without status epilepticus; K21.9 Gastro-esophageal reflux disease without esophagitis; M19.90 Unspecified osteoarthritis, unspecified site; D64.9 Anemia, unspecified; M25.552 Pain in left hip; M25.561 Pain in right knee; M25.562 Pain in left knee; M54.5 Low back pain; R25.1 Tremor, unspecified; F17.200 Nicotine dependence, unspecified, uncomplicated; F19.90 Other psychoactive substance use, unspecified, uncomplicated; Z82.5 Family history of asthma and other chronic lower respiratory diseases; W54.0XXD Bitten by dog, subsequent encounter; S41.151D Open bite of right upper arm, subsequent encounter
CPT/HCPCS: 74019; 80048; 85025; 87636; 96374; 99284